=== PATIENT | male | born 1990 | race Caucasian/White ===

== ENCOUNTER 2022-11-22 14:57 | Emergency (ER) | payer OTHER ==
[~2022-11-22] VITALS: Ht 170.2 cm; Wt 74.8 kg
[2022-11-22] MEDS ORDERED: CYMBALTA60 MG PO (15:31)
[2022-11-22] MEDS ORDERED: ZYRTEC10 MG PO (15:32)
== END 2022-11-22 19:04 | disposition home or self-care (01) ==
LOC: ER 14:57
DX: R53.81 Other malaise (principal); R05.8 Other specified cough; R09.3 Abnormal sputum